=== PATIENT | female | born 1955 | race Caucasian/White ===

== ENCOUNTER 2017-01-07 10:07 | Inpatient (IN) ==
[2017-01-07] MEDS ORDERED: CATAPRES PO ONE (11:46)
[2017-01-07] MEDS ORDERED: DEMEROL IM ONE (11:47)
[2017-01-07] MEDS ORDERED: PHENERGAN IM ONE (11:47)
--- NOTE | 2017-01-07 11:49 | PROVIDER DOCUMENTATION ---
HPI-Abdominal Pain/GI Problem - General Chief Complaint: Return/Recheck Stated Complaint: NAUSEA/VOMITING Time Seen by Provider: 01/07/17 11:28 Source: patient Allergies/Adverse Reactions: Patient Allergies Allergy/AdvReac Type Severity Reaction Status Date / Time No Known Allergies Allergy Verified 01/03/17 07:19 Home Medications: Home Medication List Medication Instructions Recorded Confirmed Last Taken Type Ondansetron HCl [Zofran] 1 - 2 tab PO Q6H PRN PRN #10 tablet 01/12/16 Unknown Rx Pantoprazole [Protonix] 40 mg PO DAILY@0700 #30 tablet 01/12/16 Unknown Rx Potassium Chloride [Klor-Con M20] 20 meq PO DAILY #7 tab.er.prt 01/12/16 Unknown Rx Amlodipine [Norvasc] 5 mg PO DAILY 05/25/16 05/25/16 Unknown History Hydrochlorothiazide 25 mg PO DAILY #30 tablet 05/25/16 Unknown Rx Lorazepam [Ativan] 0.5 mg PO BID 05/25/16 05/25/16 Unknown History Losartan/Hydrochlorothiazide 1 each PO DAILY 01/03/17 01/03/17 Unknown History [Losartan-Hctz 100-25 mg Tab] Progesterone [Prometrium] 100 mg PO QHS 01/03/17 01/03/17 01/02/17 History 100 Hydromorphone [Dilaudid] 2 mg PO Q2H PRN PRN #15 tablet 01/06/17 Unknown Rx Levofloxacin [Levaquin] 500 mg PO DAILY #4 tablet 01/06/17 Unknown Rx Metronidazole [Flagyl] 500 mg PO TID #14 tablet 01/06/17 Unknown Rx - History of Present Illness-ABD Nature of Presenting Problems: 61 yo WF presents to ED with cc of nausea, vomiting, and RUQ and RLQ pain following discharge last night from hospital from 3-day stay for diverticulitis. Pt reports pain is identical to pain she experienced with diverticulitis. She reports that she believes her pain management is not sufficient. Pt has hx of HTN. Upon arrival to ED, pt appears mildly distressed, with elevated BP. Pt denies fever, constipation, and diarrhea. Pt appears nontoxic. Abdominal Pain Onset Location: reports: RUQ, RLQ, suprapubic Pain Radiation: reports: no radiation Severity in ED: reports: severe Onset/Duration: reports: abrupt, last night (Pain returned), other ( Diverticulitis dx 4 days ago) Timing: reports: still present Activities at Onset: reports: other (Discharged to home with oral meds instead of IV meds) Modifying Factors: worse with: movement, other medication, palpation Associated Symptoms: reports: nausea, vomiting. denies: constipation, diarrhea , fever/chills Dark Stools Present?: reports: none noticed Rectal Bleeding: reports: none Bruising or Bleeding Gums?: No Similar Symptoms Previously?: Yes (4 days ago) Recently seen or treated by another doctor?: Yes (This hospital, for diverticulitis) Review of Systems - Adult - REVIEW OF SYSTEMS - ADULT Constitutional: reports: no symptoms reported. denies: chills, fever Eyes: reports: no symptoms reported. denies: blurred vision, double vision Ears, Nose, Mouth & Throat: reports: no symptoms reported. denies: ear pain, sinus problem Cardiovascular: reports: no symptoms reported. denies: chest pain, irregular heart rate Respiratory: reports: no symptoms reported. denies: cough, excessive sputum production Gastrointestinal: reports: abdominal pain, nausea, vomiting. denies: constipation, diarrhea, frequent heartburn Genitourinary: reports: no symptoms reported. denies: dysuria, flank pain Musculoskeletal: reports: no symptoms reported. denies: bone pain, joint pain Integumentary: reports: no symptoms reported. denies: hives, rash Neurological: reports: no symptoms reported. denies: dizziness/vertigo, numbness Psychiatric: reports: no symptoms reported. denies: anxiety, depression Endocrine: reports: no symptoms reported. denies: cold intolerance, heat intolerance Hematologic/Lymphatic: reports: no symptoms reported. denies: blood clots, low blood count Allergic/Immunologic: reports: no symptoms reported. denies: allergic reactions , eczema All Other Systems: Reviewed and Negative Past History - Adult - PAST MEDICAL HISTORY-ADULT Review of Records: reports: Old Records Reviewed, Nursing Assessment Review, Medications Reviewed Major Childhood Illnesses: reports: denies history Cardiovascular: reports: HTN Respiratory: reports: denies history Gastrointestinal: reports: GERD, other Genitourinary: reports: chronic UTI's Musculoskeletal: reports: denies history Neurological: reports: denies history Endocrine/Immune: reports: denies history Other Conditions: reports: denies history - PRIOR SURGERIES/PROCEDURES Surgical/Procedure History: reports: hysterectomy, , reviewed, not pertinent - IMMUNIZATION STATUS Childhood Immunizations: See Nurse Assessment Flu Vaccine: See Nurse Assessment - FAMILY HISTORY Family History: reviewed, not pertinent Physical Exam-General - PHYSICAL EXAM-ADULT Initial Vital Signs Reviewed: Yes - CONSTITUTIONAL General Appearance: alert, mild distress - EYES Eyes: PERRL/EOMI, pink conjunctivae - HEAD, EARS, NOSE, MOUTH & THROAT HENMT: normocephalic/atraumatic, moist mucous membranes - NECK Neck: full range of motion, supple - RESPIRATORY Respiratory: no respiratory distress, no accessory muscle use - CARDIOVASCULAR Cardiovascular: normal peripheral pulses, regular rate, rhythm, other (BP elevated) - GASTROINTESTINAL (ABDOMEN) Abdominal Exam: normal bowel sounds, soft, tenderness (RUQ, RLQ, suprabpubic) - LYMPHATIC Lymphatic: no adenopathy - MUSCULOSKELETAL Back Exam: normal inspection, no vertebral tenderness Extremity: normal range of motion, non-tender. negative: pedal edema - SKIN Integumentary: normal color, normal turgor, warm/dry - NEUROLOGIC Neurologic: grossly normal, no motor/sensory deficits - PSYCHIATRIC Psych/Mental Status: normal mood/affect, normal thought content, normal thought process, oriented x 3 Progress - CONSULTS/PCP/HOSPITALIST Notification #1 *Consult/PCP/Hospitalist*: Dr. Guerrier Time Discussed: 13:24 Consult Disposition: Admit Departure - Departure Time of Disposition Order: 12:40 DIAGNOSIS: Diverticulitis Qualifiers: Diverticulitis site: unspecified part of intestinal tract Diverticulitis bleeding: without bleeding Diverticulitis complication: without perforation or abscess Qualified Code(s): K57.92 - Diverticulitis of intestine, part unspecified, without perforation or abscess without bleeding Disposition: ADMITTED INPATIENT 09 Certified Medical Emergency: Emergent Condition: Stable Attestation - Scribe Verification/Attestation Scribe:: Amy Ricks Acting as Scribe for:: Nael Jane Scribe documention review:: This chart was documented by a scribe and accurately reflects the service the provider performed and the decisions made by the provider. - Physician/ VINNIE Attestation Patient care was provided by Advanced Practice Provider:: No
[2017-01-07 12:15] LABS: MANUAL DIFF NEEDED? NO
[2017-01-07 12:20] LABS: BASO% 0.2 % (0.0-0.8); EOS# 0.05 X1000 (0.0-0.7); EOS% 0.5 % (0.0-10.0); HEMATOCRIT 39.7 % (37.0-47.0); IMM GRAN# 0.02 X1000 (0.0-0.04); IMM GRAN% 0.2 % (0.0-0.5); LYMPH# 0.97 X1000 (1.2-3.4); LYMPH% 9.7 % (20.5-51.1); MCHC 35.3 g/dL (33-37); MCV 90.8 FL (81-99); NEUT% 82.4 % (42.2-75.2); PLT 260 X1000 (130-400); RBC 4.37 XMIL (4.2-5.4)
[2017-01-07 12:47] LABS: AGAP 13; ALKALINE PHOSPHATASE 39 U/L (32-104); AMYLASE 64 U/L (20-200); BUN 7 mg/dL (8-22); CALCIUM 9.3 mg/dL (8.8-10.2); CHLORIDE 101 mmol/L (98-107); COSMO 272; GOT 17 U/L (10-30); GPT 12 U/L (10-36); LIPASE 30 U/L (13-60); POTASSIUM 3.2 mmol/L (3.5-5.1); SODIUM 137 mmol/L (136-145); TCO2 23 mmol/L (25-35); TOTAL PROTEIN 6.6 g/dL (6.3-8.3)
[2017-01-07] MEDS ORDERED: DILAUDID PO PRN (13:27)
[2017-01-07] MEDS ORDERED: FLAGYL PO SCH (14:00)
[2017-01-07] MEDS ORDERED: ZOFRAN IV PRN (15:45)
[2017-01-07] MEDS ORDERED: SODIUM CHLORIDE 0.9% INJ PRN (15:45)
[2017-01-07] MEDS ORDERED: PHENERGAN IV PRN (15:45)
[2017-01-07] MEDS: NS 1,000 ML IV SCH (16:45)
[2017-01-07] MEDS: SODIUM CHLORIDE 0.9% INJ SCH (16:45)
[2017-01-07] MEDS: PROTONIX IV SCH (16:45)
[2017-01-07] MEDS: TORADOL IV PRN (16:45)
--- NOTE | 2017-01-07 18:03 | HISTORY AND PHYSICAL ---
CHIEF COMPLAINT: Abdominal pain. HISTORY OF PRESENT ILLNESS: This is a 61-year-old female with a history of diverticulitis who was just discharged less than 24 hours ago with the same after being admitted on 01/03/2017. During this admission she was found to have mild ascending colon diverticulitis on a CT scan 01/03/2017. This scan was repeated on the which revealed interval clearing of the ascending colon diverticulitis with a possible new area of diverticulitis of the left lateral rectal sigmoid region. She remained NPO and was tolerating full liquids well, had very little pain, no nausea, vomiting and she opted to go home last night. She states that the pain started this morning and that it slowly increased through the day prompting an emergency room visit. She has a white count of 9.9. She is afebrile. She does have blood pressures 180/90 to 170/90 range, but she did not take her morning medications. In the emergency room, she was given clonidine, Demerol, Phenergan and Dilaudid and admitted for further evaluation and treatment. At the time of interview, she is in the bed lying with her knees pulled up to her chest, stating that does relieve her pain somewhat. PAST MEDICAL HISTORY: Hypertension, frequent urinary tract infection, diverticulitis. PAST SURGICAL HISTORY: , hysterectomy. SOCIAL HISTORY: She denies alcohol, tobacco, or illicit drug use. ALLERGIES: No known drug allergies. HOME MEDICATIONS: A list will be obtained. REVIEW OF SYSTEMS: A 14 point review of systems discussed with patient with pertinent positives stated in HPI. All others are negative. PHYSICAL EXAMINATION: GENERAL: This is a 61-year-old female who is lying in the bed in mild distress. VITAL SIGNS: Blood pressure is 174/90 with a heart rate of 56, respirations are 17, temperature is 98.4 degrees oral with room air saturations of 95-100%. HEENT: Head is normocephalic, atraumatic. Pupils equal, round, react to light. EOMs are intact. Sclerae anicteric. Mucous membranes are dry. NECK: Supple with trachea midline. CARDIOVASCULAR: Regular rate and rhythm. S1 and S2 appreciated. PULMONARY: Breath sounds are clear. No increased work of breathing noted. GASTROINTESTINAL: Abdomen is soft, nondistended, with some suprapubic to left lower quadrant tenderness. Bowel sounds in all 4 quadrants. MUSCULOSKELETAL: Good range of motion of joints. BACK: No CVAT. No spine tenderness. SKIN: Warm and dry. EXTREMITIES: No clubbing, cyanosis, or edema. Pulses are palpable x4. Calves are nontender. LABORATORY: WBC is 9.9 with hemoglobin 14, hematocrit 39.7, and platelets of 260,000. Sodium is 137, potassium 3.2, BUN 7, creatinine 0.7 with a glucose of 101. ASSESSMENT: 1. Abdominal pain, most likely diverticulitis. 2. Recent diverticulitis. 3. History of hypertension. 4. Nausea and vomiting. PLAN: Patient will be admitted to the hospital. She will be nothing per oral. We will restart intravenous fluids with intravenous Flagyl and Levaquin with intravenous pain and nausea medication. We will start Protonix. We will trend electrolytes and replete as appropriate. We will repeat her computed tomography scan today and we will contact Gastroenterology. She will require a gastrointestinal workup and the patient once again has been discussed as in her previous admission that this workup would have to be done at [facility]. We will allow the patient to decide. Dictated by MER Gaston for Jose Guerrier MD
[2017-01-07] MEDS: FLAGYL 500 MG/NS 100 ML IV SCH ×2 (19:49→21:26)
[2017-01-07] MEDS: ATIVAN PO SCH ×2 (19:49→21:26)
--- NOTE | 2017-01-07 22:26 | Diag Imaging Result Document ---
PROCEDURE NAME: ABDOMEN/PELVIS W/CONTRAST - 01/07/2017 CT ABDOMEN AND PELVIS WITH ORAL AND INTRAVENOUS CONTRAST: TECHNIQUE: Dose reduction protocol. COMPARISON: 01/05/2017. FINDINGS: Normal spleen, adrenal glands, pancreas, gallbladder, and liver. Normal enhancement of the kidneys. No hydronephrosis. Normal aorta. No bowel obstruction. No inflammation about the cecum. The urinary bladder is distended and appears normal. Appearance of the rectosigmoid junction is unchanged from the prior study. Trace pelvic fluid. Appearance of uterus is unchanged. IMPRESSION: No change from the prior exam. A preliminary report was given at 6:47 p.m.
[2017-01-08] MEDS: FLAGYL 500 MG/NS 100 ML IV SCH ×4 (02:05→20:14)
[2017-01-08] MEDS: NS 1,000 ML IV SCH ×4 (02:06→22:21)
[2017-01-08] MEDS: DILAUDID IV PRN ×3 (02:09→17:25)
[2017-01-08] MEDS: TORADOL IV PRN ×3 (04:20→20:13)
[2017-01-08] MEDS ORDERED: TYLENOL PO PRN (06:00)
[2017-01-08] MEDS ORDERED: ZOFRAN IV PRN (06:00)
[2017-01-08 06:42] LABS: HEMATOCRIT 33.6 % (37.0-47.0); HEMOGLOBIN 11.9 g/dL (12.0-16.0); MCH 32.8 PG (27-31); MCHC 35.4 g/dL (33-37); MCV 92.6 FL (81-99); MPV 9.7 FL (7.4-10.4); RBC 3.63 XMIL (4.2-5.4)
[2017-01-08 06:57] LABS: AGAP 10; ALBUMIN 3.4 g/dL (3.5-5.0); ALKALINE PHOSPHATASE 35 U/L (32-104); BUN 10 mg/dL (8-22); CALCIUM 8.3 mg/dL (8.8-10.2); CHLORIDE 103 mmol/L (98-107); COSMO 272; GOT 21 U/L (10-30); GPT 13 U/L (10-36); MAGNESIUM 1.7 mg/dL (1.5-2.7); POTASSIUM 2.9 mmol/L (3.5-5.1); SODIUM 137 mmol/L (136-145); TCO2 24 mmol/L (25-35); TOTAL PROTEIN 5.5 g/dL (6.3-8.3)
[2017-01-08] MEDS ORDERED: PROTONIX PO SCH (07:00)
--- NOTE | 2017-01-08 07:39 | PROGRESS NOTE ---
DATE: 01/08/2017 SUBJECTIVE: Patient without new complaints. She is much more calm in the room by herself than she was yesterday with the family present. She is noted to be sleeping comfortably. She easily awakens. Complains of pain in the left lower quadrant. PHYSICAL EXAMINATION: Vital Signs: Temperature 98.5, pulse 59-65, BP 157/69. General: Patient is awake, alert. She was sleeping upon entering the room. She is easily awakened. She is in no respiratory distress. Speech is regular. Memory is intact. HEENT: Normocephalic. Neck: Supple. CV: Regular rate. Chest: Relatively clear. Abdomen: Soft. Positive bowel sounds. Tender in the bilateral lower quadrants but not as severe as yesterday. ASSESSMENT: 1. Rectosigmoid diverticulitis. Patient recently had a CT scan a few days ago that showed ascending diverticulitis which has now cleared and now showing rectosigmoid. This certainly could be an inflammatory condition as well. 2. Hypertension, better. 3. Nausea and vomiting, better. 4. Abdominal pain, better. PLAN: We will advance the patient's diet to clear liquids. We will start Solu-Medrol and we will continue.
[2017-01-08] MEDS: LEVAQUIN 500 MG/D5W 100 ML IV SCH (08:15)
[2017-01-08] MEDS: KLOR-CON PO SCH (08:22)
[2017-01-08] MEDS: COZAAR PO SCH (08:22)
[2017-01-08] MEDS: HYDROCHLOROTHIAZIDE PO SCH (08:23)
[2017-01-08] MEDS: ATIVAN PO SCH ×2 (08:23→20:14)
[2017-01-08] MEDS: NORVASC PO SCH (08:23)
[2017-01-08] MEDS: SOLU-MEDROL IV SCH ×2 (08:34→15:56)
[2017-01-08] MEDS ORDERED: LEVAQUIN PO SCH (09:00)
[2017-01-08] MEDS: POTASSIUM CHLORIDE 20 MEQ/SWI 100 ML IV SCH ×2 (11:00→15:55)
[2017-01-08] MEDS ORDERED: LOMOTIL PO ONE (15:06)
[2017-01-08] MEDS ORDERED: POTASSIUM CHLORIDE 40 MEQ/SWI 100 ML ONE (15:52)
[2017-01-08] MEDS ORDERED: POTASSIUM CHLORIDE 20 MEQ/SWI 100 ML ONE (15:54)
[2017-01-08] MEDS: PROTONIX IV SCH (15:55)
[2017-01-08] MEDS: SODIUM CHLORIDE 0.9% INJ SCH (15:56)
[2017-01-09] MEDS: NS 1,000 ML IV SCH ×3 (00:13→16:10)
[2017-01-09] MEDS: DILAUDID IV PRN ×5 (00:47→21:23)
[2017-01-09] MEDS: SOLU-MEDROL IV SCH ×4 (00:47→23:50)
[2017-01-09] MEDS: FLAGYL 500 MG/NS 100 ML IV SCH ×4 (03:17→21:31)
[2017-01-09 05:57] LABS: HEMATOCRIT 37.7 % (37.0-47.0); HEMOGLOBIN 13.2 g/dL (12.0-16.0); MCH 32.3 PG (27-31); MCV 92.2 FL (81-99); MPV 10.3 FL (7.4-10.4); RBC 4.09 XMIL (4.2-5.4)
[2017-01-09 06:24] LABS: AGAP 10; ALBUMIN 3.8 g/dL (3.5-5.0); ALKALINE PHOSPHATASE 39 U/L (32-104); BUN 11 mg/dL (8-22); CALCIUM 8.5 mg/dL (8.8-10.2); CHLORIDE 102 mmol/L (98-107); COSMO 275; GOT 19 U/L (10-30); GPT 15 U/L (10-36); MAGNESIUM 1.8 mg/dL (1.5-2.7); POTASSIUM 4.2 mmol/L (3.5-5.1); SODIUM 137 mmol/L (136-145); TCO2 25 mmol/L (25-35); TOTAL PROTEIN 6.4 g/dL (6.3-8.3)
[2017-01-09] MEDS: ATIVAN PO SCH ×2 (08:23→21:22)
[2017-01-09] MEDS: KLOR-CON PO SCH (08:23)
[2017-01-09] MEDS: NORVASC PO SCH (08:23)
[2017-01-09] MEDS: LEVAQUIN 500 MG/D5W 100 ML IV SCH (08:23)
[2017-01-09] MEDS: COZAAR PO SCH (08:23)
[2017-01-09] MEDS: HYDROCHLOROTHIAZIDE PO SCH (08:23)
[2017-01-09] MEDS: TORADOL IV PRN ×3 (09:06→22:57)
[2017-01-09] MEDS ORDERED: MERREM 1 GM in NS 50 ML IV SCH (13:15)
--- NOTE | 2017-01-09 14:01 | PROGRESS NOTE ---
DATE: 01/09/2017 SUBJECTIVE: The patient has no focal complaints. She feels a little bit better after starting steroids yesterday. OBJECTIVE: Vital Signs: Blood pressure 133/74, heart rate 66, respiratory rate 18, temperature 98.2 with oxygen 97% on room air. Cardiovascular: Regular rate and rhythm. Pulmonary: Bilateral breath sounds. Clear to auscultation. GI: Soft, nontender, nondistended. Bowel sounds are positive. Extremities: No clubbing or cyanosis. Lymphatics: No peripheral edema. Neurological: Exam was nonfocal. LABORATORY DATA: White count has jumped up a little bit to 12,000, hemoglobin and hematocrit 13 and 37. Chemistries are unremarkable. PROBLEM LIST: 1. Diverticulitis. We will continue antibiotics. Empirically started steroids because she has inflammation that initially was in her ascending colon and is now in the rectosigmoid area, which was felt to be diverticulitis, but may be colitis or inflammatory bowel disease. We will get stool studies. If she is not clinically improved, I do think endoscopy is warranted or at least a gastrointestinal consult. The patient is very adamant about endoscopy at a facility outside of [place] because her mother had recent fatal complications associated with gastrointestinal diagnosis at the other facility. I will expand her coverage to [facility] just to give her a little different expanded. We will check stool studies and follow. 2. Hypertension, which is stable. Continue to monitor. DISPOSITION: Pending clinical course.
[2017-01-09] MEDS: PROTONIX IV SCH (16:09)
[2017-01-10] MEDS: DILAUDID IV PRN ×5 (01:47→22:05)
[2017-01-10] MEDS: FLAGYL 500 MG/NS 100 ML IV SCH ×4 (04:05→22:05)
[2017-01-10] MEDS: NS 1,000 ML IV SCH ×2 (04:31→17:20)
[2017-01-10 06:25] LABS: HEMATOCRIT 36.3 % (37.0-47.0); HEMOGLOBIN 12.7 g/dL (12.0-16.0); MCH 32.4 PG (27-31); MCV 92.6 FL (81-99); MPV 10.4 FL (7.4-10.4); RBC 3.92 XMIL (4.2-5.4)
[2017-01-10 06:38] LABS: AGAP 8; BUN 14 mg/dL (8-22); CALCIUM 8.5 mg/dL (8.8-10.2); CHLORIDE 104 mmol/L (98-107); COSMO 278; POTASSIUM 3.7 mmol/L (3.5-5.1); SODIUM 138 mmol/L (136-145); TCO2 26 mmol/L (25-35)
[2017-01-10] MEDS: SOLU-MEDROL IV SCH ×2 (08:31→15:48)
[2017-01-10] MEDS: COZAAR PO SCH (08:32)
[2017-01-10] MEDS: HYDROCHLOROTHIAZIDE PO SCH (08:33)
[2017-01-10] MEDS: KLOR-CON PO SCH (08:33)
[2017-01-10] MEDS: NORVASC PO SCH (08:33)
[2017-01-10] MEDS: ATIVAN PO SCH ×2 (08:33→20:04)
[2017-01-10] MEDS: LEVAQUIN 500 MG/D5W 100 ML IV SCH (08:33)
[2017-01-10] MEDS: TORADOL IV PRN ×2 (09:46→19:28)
--- NOTE | 2017-01-10 11:16 | PROGRESS NOTE ---
DATE: 01/10/2017 SUBJECTIVE: Patient has no focal complaints. OBJECTIVE: Blood pressure 161/71, heart rate of 65, respiratory rate 18, temperature 97.9 degrees.Cardiovascular: Regular rate and rhythm. Pulmonary: Bilateral breath sounds. Clear to auscultation. GI: Soft, nontender, nondistended. Bowel sounds are positive. LABORATORY DATA: White count 12.9, hemoglobin and hematocrit 12 and 36, platelets 238,000. C basic was normal. PROBLEM LIST: 1. Colitis versus diverticulitis. She is on empiric antibiotics and steroids and seems to be doing well. The laboratory data is stable. She seems to be doing okay on her antibiotics and steroids. I am going to leave her on her treatment course right now. She is requesting a GI consult. She is requesting not to be seen in [place] so we are trying to pursue transfer to another facility. However no beds were available currently at either [facility] or [facility] so we will just have to monitor for now. I will discuss further with the patient. 2. Hypertension appears to be stable on her current medications. DISPOSITION: She is clinically improving. May be able to stabilize her and go home and then follow up with GI as an outpatient.
[2017-01-10] MEDS: PROTONIX IV SCH (15:48)
[2017-01-11] MEDS: SOLU-MEDROL IV SCH ×4 (00:56→23:08)
[2017-01-11] MEDS: DILAUDID IV PRN ×4 (03:33→23:08)
[2017-01-11] MEDS: FLAGYL 500 MG/NS 100 ML IV SCH ×4 (03:39→23:08)
[2017-01-11] MEDS: TORADOL IV PRN (05:53)
[2017-01-11] MEDS: NS 1,000 ML IV SCH (05:53)
[2017-01-11 06:40] LABS: HEMATOCRIT 39.3 % (37.0-47.0); HEMOGLOBIN 13.6 g/dL (12.0-16.0); MCH 32.2 PG (27-31); MCHC 34.6 g/dL (33-37); MCV 93.1 FL (81-99); MPV 10.5 FL (7.4-10.4); RBC 4.22 XMIL (4.2-5.4)
[2017-01-11 07:15] LABS: AGAP 9; BUN 12 mg/dL (8-22); CALCIUM 8.8 mg/dL (8.8-10.2); CHLORIDE 103 mmol/L (98-107); COSMO 281; POTASSIUM 3.6 mmol/L (3.5-5.1); SODIUM 140 mmol/L (136-145); TCO2 28 mmol/L (25-35)
[2017-01-11] MEDS: COZAAR PO SCH (09:18)
[2017-01-11] MEDS: HYDROCHLOROTHIAZIDE PO SCH (09:18)
[2017-01-11] MEDS: ATIVAN PO SCH ×2 (09:18→20:33)
[2017-01-11] MEDS: NORVASC PO SCH (09:18)
[2017-01-11] MEDS: KLOR-CON PO SCH (09:18)
[2017-01-11] MEDS: LEVAQUIN 500 MG/D5W 100 ML IV SCH (09:19)
[2017-01-11] MEDS: APRESOLINE IV PRN (10:33)
[2017-01-11] MEDS ORDERED: NORVASC PO ONE (13:57)
[2017-01-11] MEDS: PROTONIX IV SCH (15:20)
[2017-01-11] MEDS: SODIUM CHLORIDE 0.9% INJ SCH (15:21)
[2017-01-11] MEDS ORDERED: GLYCERIN ADULT PR PRN (18:58)
[2017-01-11 20:53] LABS: OCCULT BLOOD 1 NEGATIVE (NEGATIVE)
[2017-01-11 21:23] LABS: C DIFF ANTIGEN PL NEGATIVE (NEGATIVE); C DIFF TOXIN PL NEGATIVE (NEGATIVE)
[2017-01-12] MEDS: APRESOLINE IV PRN (01:01)
[2017-01-12] MEDS: FLAGYL 500 MG/NS 100 ML IV SCH ×3 (05:34→16:26)
[2017-01-12] MEDS: DILAUDID IV PRN ×2 (05:34→10:00)
[2017-01-12 06:30] LABS: HEMATOCRIT 42.6 % (37.0-47.0); MCH 32.1 PG (27-31); MCHC 35.2 g/dL (33-37); MPV 10.4 FL (7.4-10.4); RBC 4.68 XMIL (4.2-5.4)
[2017-01-12 06:51] LABS: AGAP 11; BUN 11 mg/dL (8-22); CALCIUM 9.4 mg/dL (8.8-10.2); CHLORIDE 98 mmol/L (98-107); COSMO 275; POTASSIUM 3.1 mmol/L (3.5-5.1); SODIUM 137 mmol/L (136-145); TCO2 29 mmol/L (25-35)
[2017-01-12] MEDS: KLOR-CON PO SCH (08:20)
[2017-01-12] MEDS: LEVAQUIN 500 MG/D5W 100 ML IV SCH (08:20)
[2017-01-12] MEDS: SOLU-MEDROL IV SCH (08:21)
[2017-01-12] MEDS: COZAAR PO SCH (08:21)
[2017-01-12] MEDS: HYDROCHLOROTHIAZIDE PO SCH (08:21)
[2017-01-12] MEDS: NORVASC PO SCH (08:21)
[2017-01-12] MEDS: ATIVAN PO SCH (08:21)
[2017-01-12] MEDS ORDERED: NORVASC PO SCH (13:34)
[2017-01-12] MEDS ORDERED: CATAPRES PO ONE (14:02)
[2017-01-12] MEDS: PROTONIX IV SCH (16:25)
[2017-01-12] MEDS: SODIUM CHLORIDE 0.9% INJ SCH (16:26)
[2017-01-12] MEDS ORDERED: KLOR-CON PO ONE (17:53)
[2017-01-12 17:57] VITALS: BP 190/91
[2017-01-12] MEDS ORDERED: SOLU-MEDROL IV SCH (20:00)
--- NOTE | 2017-02-12 23:42 | DISCHARGE SUMMARY ---
ADMISSION DATE: 01/07/2017 DISCHARGE DATE: 01/12/2017 ADMISSION DIAGNOSES: 1. Diverticulitis. 2. Nausea, vomiting. 3. Hypertension. PRIMARY DIAGNOSIS: Diverticulitis. DISCHARGE DIAGNOSIS.: Colitis versus diverticulitis. HOSPITAL COURSE: Briefly this is a 61-year-old female who presented from home with abdominal pain, nausea, vomiting. She was empirically placed on antibiotics including Flagyl and Levaquin. CT scan was pursued. GI consultation was requested but no beds were available at [facility] and the patient was very adamant about not going to [facility] because she had issues with her mother at that facility. She was maintained on IV antibiotics and she had actually recurrent disease in a different location. Initially she had ascending colitis inflammation and now it had extension into her rectosigmoid. Clinically however she improved with antibiotics and steroids. Those were instituted on the I believe, she had improvement although she was maintained on both, I did think endoscopy was warranted because she had a migratory pattern on her inflammation. However again we could not get her placed at [facility] or [facility]. Clinically she improved and on the was discharged in stable condition. DISCHARGE MEDICATIONS: Ativan 0.5 b.i.d., losartan/hydrochlorothiazide 100/25 daily, Zofran p.r.n., Klor-Con 20 p.r.n., Protonix 40 daily, Flagyl 500 t.i.d. for another 7 days, Levaquin 500 daily for another 7 days, Norvasc 10 daily, prednisone taper, hydrochlorothiazide 25 daily and Dilaudid p.r.n. that was actually initially ordered. DISCHARGE INSTRUCTIONS: She was set up with GI as an outpatient for evaluation for endoscopy. She was told to return for worsening abdominal pain, nausea, vomiting, or any significant bleeding. Again I think endoscopy is warranted in this setting. I believe she was set up with Dr. Salazar. TIME SPENT: 32 minute discharge.
== END 2017-01-12 19:03 | disposition home or self-care (01) | DRG 392 ==
LOC: P.ED 10:07 → P.MEDSURG 10:08 → OBSVTOIN 10:08
PROVIDERS: ATTEND Internal Medicine
DX: K57.32 Diverticulitis of large intestine without perforation or abscess without bleeding (principal); K52.9 Noninfective gastroenteritis and colitis, unspecified; I10 Essential (primary) hypertension; K21.9 Gastro-esophageal reflux disease without esophagitis; Z87.440 Personal history of urinary (tract) infections
CPT/HCPCS: 36415; 74177; 80048; 80053; 82150; 82270; 83690; 83735; 85025; 85027; 86255; 86671; 87045; 87046; 87324; 87449; 89055; 96372; C9113; J0360; J1170; J1885; J2175; J2185; J2405; J2550; J2930; J3480; J7030; Q9967; S0030; S0164